=== PATIENT | male | born 2000 | race Caucasian/White ===

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

== ENCOUNTER 2022-12-05 14:34 | Emergency (ER) | payer BC, MEDICAID, SELFPAY ==
[2022-12-05 14:41] VITALS: BP 151/94; PULSE 82; RESP 16; TEMP 36.8; O2SAT 98; BMI 31.1
--- NOTE | 2022-12-05 15:02 | CTR_ITS ---
PROCEDURE INFORMATION: Exam: CT Neck With Contrast Exam date and time: 12/05/2022 3:12 PM Age: 22 years old Clinical indication: Other: Tonsil mass vs abscess TECHNIQUE: Imaging protocol: Computed tomography of the neck with contrast. Radiation optimization: All CT scans at this facility use at least one of these dose optimization techniques: automated exposure control; mA and/or kV adjustment per patient size (includes targeted exams where dose is matched to clinical indication); or iterative reconstruction. Contrast material: OMNI 350; Contrast volume: 100 ml; Contrast route: INTRAVENOUS (IV); REPORTING DATA: Count of CT and Cardiac NM exams in prior 12 months: This patient has received 0 known CTs and 0 known cardiac nuclear medicine studies in the 12 months prior to the current study. COMPARISON: No relevant prior studies available. RADIATION DOSE METRICS: Total DLP (mGy-cm): 282.96 FINDINGS: Mastoid air cells: Postsurgical changes from prior left wall up mastoidectomy. Paranasal sinuses: Small [id number]-right maxillary sinus mucous retention cysts. Pharynx: There is significant adenoidal enlargement narrowing the nasopharynx. There is enlargement of the palatine tonsils with subtle striated enhancement pattern. Tiny right palatine tonsil calcification. No hypoattenuation to suggest abscess. Larynx: Unremarkable. Epiglottis is normal. Prevertebral and retropharyngeal spaces: Unremarkable. Salivary glands: Normal. Glands are normal in size. Thyroid: Normal. No enlarged or calcified nodules. Lymph nodes: Multiple prominent cervical lymph nodes with index right jugulodigastric lymph node measuring 16 mm in the short axis on axial image 58 of series 4. Index left level IIB lymph node measures 12 mm in the short axis on axial image 45 of series 4. Trachea: Visualized trachea is unremarkable. Lungs: Few sub 6 mm nodules at the visualized right upper lung. Bones/joints: Unremarkable. No acute fracture. Vasculature: Normal variant 4 vessel left aortic arch. Soft tissues: Unremarkable. No significant soft tissue swelling. CT/CT neck w con* [id number] IMPRESSION: 1. Adenoidal and palatine tonsillar enlargement without abscess. 2. Cervical lymphadenopathy is likely reactive. Recommend clinical follow-up. 3. Few sub 6 mm nodules at the right upper lung. If the patient does not have known cancer, follow up should be based on clinical information because of the low risk of cancer in this age group. (Reference: Yoko) REFERENCES: Yoko Vincent, et al. Guidelines for Management of Incidental Pulmonary Nodules Detected on CT Images: From the Fleischner Society 2017. Radiology. 2017;284(1):228-243.
--- NOTE | 2022-12-05 15:05 | W.ED.GENADLT ---
HPI - General Adult General: Chief complaint: Airway/Esophagus Foreign Body Stated complaint: tonsils swollen Time Seen by Provider: 12/05/22 14:55 History of Present Illness: This patient is a 22 year old sent to the ED from the walk in clinic due to concern for a peritonsillar abscess. He reports pain and swelling of the right side of his throat, neck, right ear for about 4 days. He also notes that his gums are sore. He denies fever or headache. He went to the walk in clinic and was sent here. No difficulty swallowing or breathing. He feels like his sinuses are always clogged up and blows purulent bloody stuff out of his nose every few weeks. He also had a similar episode about 9 months ago and was seen at a walk in clinic in [place]. At that time he was told that he had a tonsil stone and was given mouthwash. He also notes that his gums were bleeding a lot at that time as well. He says it eventually got better. His other relevant medical history is a cyst on the left ear that was touching his brain and had to be removed. He says that he had to have emergency surgery in [place] for that - done by ENT. He can't tell me any more about that. He also has braces on his teeth and says that they are long overdue to come off. [facility] ED PFSH: Social History Smoking and tobacco status: never smoked Alcohol intake: never Substance/Drug Use: never Physical Exam Const: COMMON NORMALS: no acute distress, patient oriented x3, no limitations and alert GENERAL APPEARANCE: cooperative and comfortable HENMT: COMMON NORMALS: external ears normal and TM's normal bilaterally HEAD & SCALP: normal to inspection FACE & SINUS: normal facial exam EXTERNAL EAR: Yes external ears normal TYMPANIC MEMBRANE: TM's normal bilaterally MOUTH: Normal oral and palatal mucosa present and tongue normal OTHER: right tonsil enlarged, with an ulceration on the anterior portion of the tonsil. Eye: GENERAL EYE: appearance normal, both eyes and all related structures Neck/C-Spine: COMMON NORMALS: supple, no meningeal signs and no JVD Chest: COMMONS NORMALS: normal inspection of the chest Resp: COMMON NORMALS: normal respiratory effort, No use of accessory muscles and clear to auscultation bilaterally AUSCULTATION: clear to auscultation bilaterally Cardio: COMMON NORMALS: no JVD, regular rate, regular rhythm and No murmurs present (Cardio) RATE: regular rate RHYTHM: regular rhythm GI: COMMON NORMALS: Normal to inspection, nondistended, normoactive bowel sounds present, Soft to palpation and non-tender INSPECTION: Yes normal to inspection AUSCULTATION: Yes normoactive bowel sounds PALPATION: Yes Soft to palpation : COMMON NORMALS: Yes Testes normal and Yes scrotum normal PENIS: uncircumcised and ulceration (right side of the shaft) Back/Pelvis: COMMON NORMALS: thoracic and lumbar spine normal to inspection Extremity: COMMON NORMALS: normal to inspection Neuro: COMMON NORMALS: patient oriented x3, moves all extremities, no focal motor deficits and no sensory deficits noted SENSORIUM/ORIENTATION: Yes alert MENINGEAL SIGNS: Yes no meningeal signs Psych: COMMON NORMALS: mental status grossly normal, cooperative and normal affect Skin: COMMON NORMALS: no rashes or lesions noted and turgor normal GENERAL SKIN EXAM: no rashes or lesions noted and turgor normal Course Vital Signs: Vital signs: Vital Signs Temperature 98.2 F 12/05/22 14:41 Pulse Rate 82 12/05/22 14:41 Respiratory Rate 16 12/05/22 14:41 Blood Pressure 151/94 12/05/22 14:41 Pulse Oximetry 98 12/05/22 14:41 Oxygen Delivery Me thod Room Air 12/05/22 14:41 MDM - General Adult Medical Decision 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 I think labs and a CT are reasonable to evaluate for mass or sinus abnormality - as well as for RETAIL BANKING MANAGER. If neg - outpatient antibiotics seems appropriate. CT shows post surgical changes consistent with mastoiditis on the left. Presume this is the cyst surgery to which the patient referred. No abscess, no mass. Outpatient antibiotics and strongly recommend ENT follow up as this is a recurrent episode with in the past year. Patient's sodium came back somewhat low at 126. Cl also low. Reason for this is unclear as he is on no medications and is generally healthy. This was discussed with the patient. He was referred for follow up with a PCP and encouraged to get his labs rechecked within a week. I don't think this needs further work up in the ED at this time as he is asymptomatic. At discharge, the patient requested to be checked for STDs. He has a lesion on his penis that has been present for 2 days. It is a dry, shallow ulcer. Mildly painful. No lymphadenopathy. No discharge. He says that he pulled a tick of his lower abdomen and has a few other lesions in the groin area that he thinks are tick bites. He has had unprotected sex with some questionable women recently. He does not know of a definite exposure. We discussed empiric treatment vs testing and waiting on results. He prefers to wait. He understands the importance of treatment if he is called with a positive result. RPR and GC/chlamydia sent. Lab Data 12/05/22 15:26 12/05/22 15:[address] 12/05/22 15:02 IMPRESSION: 1. Adenoidal and palatine tonsillar enlargement without abscess. 2. Cervical lymphadenopathy is likely reactive. Recommend clinical follow-up. 3. Few sub 6 mm nodules at the right upper lung. If the patient does not have known cancer, follow up should be based on clinical information because of the low risk of cancer in this age group. (Reference: Yoko) REFERENCES: Luxhoeloisa H, et al. Guidelines for Management of Incidental Pulmonary Nodules Detected on CT Images: From the Fleischner Society 2017. Radiology. 2017;284(1):228-243. Laboratory Results WBC 7.0 10^3/uL (4.0-10.0) 12/05/22: RBC 5.37 10^6/uL (4.1-5.3) H 12/05/22 15: Hgb 16.3 g/dL (11.7-16.6) 12/05/22 15: Hct 50.2 % (42.0-52.0) 12/05/22 15: MCV 93.5 fl (80-94) 12/05/22 15: MCH 30.4 pg (28.0-34.0) 12/05/22 15: MCHC 32.5 g/dL (30.0-36.0) 12/05/22: RDW 12.3 % (12.1-15.1) 12/05/22 15:26 Plt Count 210 10^3/cmm (130-400) 12/05/22 15: MPV 10.4 fL (7.4-10.4) 12/05/22 15:26 Neut % (Auto) 67.7 % 12/05/22 15:26 Lymph % (Auto) 20.6 % 12/05/22 15:26 [place] % (Auto) 9.4 % 12/05/22 15:26 Eos % (Auto) 1.3 % 12/05/22 15:26 Baso % (Auto) 0.7 % 12/05/22 15:26 Neut # (Auto) 4.73 10^3/uL (1.8-7.7) 12/05/22 15:26 Lymph # (Auto) 1.4 10^3/uL (0.8-4.8) 12/05/22 15: [place] # (Auto) 0.7 10^3/uL (0.2-0.9) 12/05/22 15:26 Eos # (Auto) 0.1 10^3/uL (0.0-0.8) 12/05/22 15:26 Baso # (Auto) 0.1 10^3/uL (0.0-0.1) 12/05/22 15:26 Nucleated RBC % (auto) 0 % 12/05/22 15: Nucleated RBCs # 0.0 /100WBC 12/05/22 15:26 Sodium 126 mmol/L (136-145) L 12/05/22 15:26 Potassium 4.5 mmol/L (3.5-5.1) 12/05/22 15:26 Chloride 93 mmol/L (98-107) L 12/05/22 15:26 Carbon Dioxide 23 mmol/L (22-29) 12/05/22 15:26 Anion Gap 14.5 (5-19) 12/05/22 15:26 BUN 13 mg/dL (6-20) 12/05/22 15:26 Creatinine 0.9 mg/dL (0.7-1.2) 12/05/22 15:26 GFR Calculation 106.5 mL/min (90-130) 12/05/22 15:26 Glucose 81 mg/dL (65-115) 12/05/22 15:26 Calculated Osmolality 261 mOsm/kg (285-295) L 12/05/22 15:26 Calcium 8.9 mg/dL (8.5-10.5) 12/05/22 15:26 Total Bilirubin 0.7 mg/dL (0.15-1.2) 12/05/22 15:26 AST 15 U/L (0-40) 12/05/22 15:26 ALT 15 U/L (0-41) 12/05/22 15:26 Alkaline Phosphatase 90 U/L (40-130) 12/05/22 15:26 Total Protein 7.9 g/dL (6.6-8.7) 12/05/22 15:26 Albumin 4.3 g/dL (3.5-5.2) 12/05/22 15:26 Globulin 3.6 g/dL (1.3-4.6) 12/05/22 15:26 Discharge Plan Discharge Patient Disposition: Home Clinical Impression: Ulcer of tonsil, History of left mastoidectomy, Hyponatremia, Sore of penis Condition: Stable Prescriptions: New Augmentin XR 1,000-62.5 mg tablet extended release 12 hr 1 tab PO BID 7 Days Qty: 14 0RF Peroxide Sore Mouth Cleanser 1.5 % solution 10 ml mucous membrane TID Qty: 236 0RF Rx Instructions: swish and spit Discharge Orders: Discharge ED (Routine); Ordered 12/05/22 Ordered By: Ирина Rogers Referrals: Raimundo Hargrove MD [Physician] - [facility], [Staff Physician] - Patient Instructions: Opioid Safety, Pain Management Activity Restrictions/Additional Instructions: Follow up with the ENT doctor for evaluation of your tonsils, as this is likely to happen again in the future. No sexual contact until you have been given the results of the test for syphilis, chlamydia and gonorrhea - and have been treated if they are positive. Coding Level of Care Code ED Hadoop Admin for Theodora Mora
[2022-12-05] MEDS: iohexol 350 mg/mL 500 mL Btl (per mL) IV (15:18)
[2022-12-05 15:31] LABS: Basophils # 0.1 10^3/uL (0.0-0.1); Basophils % 0.7 %; Eosinophils # 0.1 10^3/uL (0.0-0.8); Eosinophils % 1.3 %; Hematocrit 50.2 % (42.0-52.0); Hemoglobin 16.3 g/dL (11.7-16.6); Lymphocytes # 1.4 10^3/uL (0.8-4.8); Lymphocytes % 20.6 %; Mean Corpuscular HGB Conc 32.5 g/dL (30.0-36.0); Mean Corpuscular Hemoglobin 30.4 pg (28.0-34.0); Mean Corpuscular Volume 93.5 fl (80-94); Mean Platelet Volume 10.4 fL (7.4-10.4); Monocytes # 0.7 10^3/uL (0.2-0.9); Monocytes % 9.4 %; Neutrophils # 4.73 10^3/uL (1.8-7.7); Neutrophils % 67.7 %; Nucleated Red Blood Cells % 0 %; Platelet Count 210 10^3/cmm (130-400); Red Blood Count 5.37 10^6/uL (4.1-5.3); Red Cell Distribution Width 12.3 % (12.1-15.1)
[2022-12-05 16:17] LABS: Alanine Aminotransferase 15 U/L (0-41); Albumin Level 4.3 g/dL (3.5-5.2); Alkaline Phosphatase 90 U/L (40-130); Anion Gap 14.5 (5-19); Aspartate Amino Transferase 15 U/L (0-40); Blood Urea Nitrogen 13 mg/dL (6-20); Calcium 8.9 mg/dL (8.5-10.5); Carbon Dioxide 23 mmol/L (22-29); Chloride 93 mmol/L (98-107); Globulin 3.6 g/dL (1.3-4.6); Glomerular Filtration Rate 106.5 mL/min (90-130); Glucose 81 mg/dL (65-115); Osmolality Calculated 261 mOsm/kg (285-295); Potassium 4.5 mmol/L (3.5-5.1); Sodium 126 mmol/L (136-145); Total Bilirubin 0.7 mg/dL (0.15-1.2); Total Protein 7.9 g/dL (6.6-8.7)
[2022-12-05] MEDS: amoxicillin-clav 875-125 mg Tablet 1 TAB PO (17:21)
[2022-12-07 14:00] LABS: RPR w(Moniotor) w/REFL Titer NON-REACTIVE (NON-REACTIVE)
== END 2022-12-05 17:29 | disposition home or self-care (01) ==
PROVIDERS: Emergency Provider Emergency Medicine
DX: J35.8 Other chronic diseases of tonsils and adenoids (principal); E87.1 Hypo-osmolality and hyponatremia; N48.89 Other specified disorders of penis
CPT/HCPCS: 36415; 70491; 80053; 85025; 86592; 87491; 87591; 99285; Q9967

== ENCOUNTER 2022-12-08 13:14 | Emergency (ER) | payer BC, MEDICAID, SELFPAY ==
[2022-12-08 13:43] VITALS: BP 150/92; PULSE 69; RESP 16; TEMP 36.7; O2SAT 99; BMI 31.1
--- NOTE | 2022-12-08 15:04 | W.ED.SKABFB ---
HPI - Skin/Abscess/Foreign Bdy General: Chief complaint: Skin/Abscess/Foreign Body Stated complaint: blisters on thighs, and genital area Time Seen by Provider: 12/08/22 14:31 Source: patient Mode of arrival: ambulatory History of Present Illness: 22-year-old male with a worsening rash she was seen a few days ago had a single cratered lesion he is checked for STDs and syphilis. He states now he is has a blistering rash that is burning and pain is on the shaft of his penis as well as adjacent areas over the mons. No dysuria urgency or frequency no hematuria MD complaint: rash Onset (ago): day(s) Location: genitals Severity: moderate Quality: burning Exacerbating factors: none Context: none Associated symptoms: Deny arthralgias, chills, cough, fever(s), itching, myalgias, nausea, rigidity, short of breath or vomiting Treatments prior to arrival: none Review of Systems Const: Denies: fever(s) or chills ENMT: Denies: throat pain, ear or mastoid pain, nasal discharge or nasal congestion Card: Denies: chest pain, edema, dyspnea on exertion or orthopnea Resp: Denies: dyspnea, productive cough or non-productive cough GI: Denies: nausea or vomiting : Denies: flank pain, dysuria, urinary frequency or urinary urgency Skin/Breast: Reports: rash and skin tenderness; Denies: pruritus PFSH ED PFSH: Social History Smoking and tobacco status: never smoked Alcohol intake: never Substance/Drug Use: never Physical Exam Const: GENERAL APPEARANCE: cooperative and comfortable ORIENTATION/CONSCIOUSNESS: Yes awake, Yes oriented to person, Yes oriented to place and Yes oriented to time HENMT: COMMON NORMALS: normocephalic, atraumatic and hearing grossly normal bilaterally HEAD & SCALP: normocephalic and atraumatic Resp: COMMON NORMALS: normal respiratory effort, No retractions, No use of accessory muscles and clear to auscultation bilaterally AUSCULTATION: clear to auscultation bilaterally Cardio: COMMON NORMALS: regular rate, regular rhythm and No murmurs present (Cardio) RATE: regular rate RHYTHM: regular rhythm GI: COMMON NORMALS: Soft to palpation and No hepatosplenomegaly present AUSCULTATION: Yes normoactive bowel sounds PALPATION: Yes Soft to palpation, No Tenderness to palpation present (GI), No Guarding due to palpation present (GI) and Yes No hepatosplenomegaly present Extremity: COMMON NORMALS: normal to inspection, capillary refill normal, no clubbing, cyanosis or edema, no calf tenderness and no pedal edema Neuro: SENSORIUM/ORIENTATION: Yes oriented to person, Yes oriented to place and Yes oriented to time Skin: OTHER: Vesicular rash to the genital region including the shaft of the penis on the right and over the mons on the left. Is not really in a dermatomal pattern. Course Vital Signs: Vital signs: Vital Signs Temperature 98.1 F 12/08/22 13:43 Pulse Rate 71 12/08/22 15:44 Respiratory Rate 16 12/08/22 13:43 Blood Pressure 144/98 12/08/22 15:44 Pulse Oximetry 99 12/08/22 15:44 Oxygen Delivery Me thod Room Air 12/08/22 13:43 MDM - Skin/Abscess/Foreign Bdy Medicial Decision Making Herpetic rash. Started on Valtrex. Discussed with patient. Viral culture was done of 2 of the lesions results pending Medical Records I reviewed the patient's medical records. Lab Data I reviewed the patient's lab results. Discharge Plan Discharge Patient Disposition: Home Clinical Impression: Herpes genitalia Condition: Stable Prescriptions: New Valtrex 1 gram tablet 1,000 mg PO BID 10 Days Qty: 20 0RF No Action Augmentin XR 1,000-62.5 mg tablet extended release 12 hr 1 tab PO BID 7 Days Qty: 14 0RF Peroxide Sore Mouth Cleanser 1.5 % solution 10 ml mucous membrane TID Qty: 236 0RF Rx Instructions: swish and spit Discharge Orders: Discharge ED (Routine); Ordered 12/08/22 Ordered By: Romeo Sharma Discharge Diet: Usual diet Discharge Activity: Increase activity as tolerated Patient Instructions: Opioid Safety, Pain Management Coding Level of Care Code ED Gliding Pilot Instructor for Theodora Mora
[2022-12-08 15:44] VITALS: BP 144/98; PULSE 71; O2SAT 99
== END 2022-12-08 15:47 | disposition home or self-care (01) ==
PROVIDERS: Emergency Provider Family Medicine
DX: A60.00 Herpesviral infection of urogenital system, unspecified (principal)
CPT/HCPCS: 87255; 99283

== ENCOUNTER 2023-02-09 00:23 | Emergency (ER) | payer BC, MEDICAID, SELFPAY ==
[2023-02-09 00:24] VITALS: BP 163/93; PULSE 75; RESP 18; TEMP 36.7; O2SAT 98; BMI 31.1
--- NOTE | 2023-02-09 00:45 | W.ED.PSYCHS ---
HPI - Psych General: Chief Complaint: Psychiatric Symptoms Stated Complaint: SI Time Seen by Provider: 02/09/23 00:36 History of Present Illness: Patient presents to the ER by EMS with complaints of depression and stress and intoxication. Patient admits he was drinking tonight and became upset and very depressed. Patient's mother was murdered in September Emotions get overwhelmed along with drinking. Patient states he has to care for his little brothers and had to go take out alone tonight to buy food for them. Patient states his dad still lives there but he cannot help out very much. Patient denied any homicidal or suicidal ideation to myself. He did state that he was down depressed and got the drinking and just made it worse Review of Systems General: Reports: 10 or more systems reviewed and unremarkable except in HPI and below PFSH ED PFSH: Social History Smoking and tobacco status: never smoked Alcohol intake: never Substance/Drug Use: never Physical Exam Const: COMMON NORMALS: no acute distress, average body habitus, patient oriented x3, no limitations, healthy appearing, alert and well nourished HENMT: COMMON NORMALS: normocephalic, atraumatic, hearing grossly normal bilaterally, external ears normal, Normal external nose present and moist oral mucous membranes HEAD & SCALP: normocephalic and atraumatic NOSE: Normal external nose present EXTERNAL EAR: Yes external ears normal Eye: COMMON NORMALS: Equal, round and reactive pupils present, EOMs intact bilaterally, conjunctivae normal and no scleral icterus CONJUNCTIVA: Yes conjunctivae normal PUPIL: Yes Equal, round and reactive pupils present Neck/C-Spine: COMMON NORMALS: full ROM, no lymphadenopathy, supple, no meningeal signs, no JVD and Thyroid normal THYROID: Thyroid normal Chest: COMMONS NORMALS: normal inspection of the chest and normal palpation of entire chest wall Resp: COMMON NORMALS: normal respiratory effort, No retractions, No use of accessory muscles and clear to auscultation bilaterally AUSCULTATION: clear to auscultation bilaterally Cardio: COMMON NORMALS: no JVD, regular rate, regular rhythm, S1 normal heart sound present, S2 normal heart sound present, No gallops present (Cardio), No clicks present (Cardio) and No murmurs present (Cardio) RATE: regular rate RHYTHM: regular rhythm HEART SOUNDS: S1 normal heart sound present and S2 normal heart sound present GI: COMMON NORMALS: Normal to inspection, nondistended, normoactive bowel sounds present, Soft to palpation, non-tender and No hepatosplenomegaly present PALPATION: Yes Soft to palpation and Yes No hepatosplenomegaly present : COMMON NORMALS: Yes no CVA tenderness BLADDER/KIDNEY EXAM: Yes no CVA tenderness Back/Pelvis: COMMON NORMALS: no CVA tenderness Neuro: COMMON NORMALS: patient oriented x3 SENSORIUM/ORIENTATION: Yes alert MENINGEAL SIGNS: Yes no meningeal signs Course Vital Signs: Vital signs: Vital Signs Temperature 98.0 F 02/09/23 00:24 Pulse Rate 75 02/09/23 00:24 Respiratory Rate 18 02/09/23 00:24 Blood Pressure 163/93 02/09/23 00:24 Pulse Oximetry 98 02/09/23 00:24 Oxygen Delivery Me thod Room Air 02/09/23 00:24 MDM - Psych Medical Decision Making Patient presented to the ER with complaints of depression and alcohol intoxication. Patient has not home family life stressors and depression and that he started drinking which made it worse. Patient denies any suicidal ideation or homicidal ideation consistently throughout his entire stay. Patient was worked up with a normal psychiatric fashion patient's blood alcohol level came back elevated at 161. Patient was daksha a second time 3 hours later and had decreased to 106. Patient still consistently said he had no suicidal or homicidal ideation and was just depressed and was drinking. I feel the patient is not a suicide risk or homicide risk. And will discharge patient to a sober willing route driver salesperson. Differential Diagnosis Likely depression; Unlikely acute psychosis, chronic schizophrenia, suicidal ideation, bipolar disorder, drug-induced psychotic disorder or acute anxiety Medical Records I reviewed the patient's medical records. Lab Data I reviewed the patient's lab results. 02/09/23 01:02 02/09/23 01:02 Laboratory Results WBC 6.52 10^3/uL (3.29-11.43) 02/09/23 01:02 RBC 5.78 10^6/uL (3.85-5.65) H 02/09/23 01:02 Hgb 17.70 g/dL (11.27-16.99) H 02/09/23 01:02 Hct 52.5 % (37-53) 02/09/23 01:02 MCV 90.8 fl (82-101) 02/09/23 01:02 MCH 30.6 pg (27-33) 02/09/23 01:02 MCHC 33.7 g/dL (30-55) 02/09/23 01:02 RDW 13.0 % (12.1-15.1) 02/09/23 01:02 Plt Count 221 10^3/cmm (157-399) 02/09/23 01:02 MPV 10.3 fL (7.4-10.4) 02/09/23 01:02 Neut % (Auto) 59.4 % 02/09/23 01:02 Lymph % (Auto) 31.9 % 02/09/23 01:02 [place] % (Auto) 7.2 % 02/09/23 01:02 Eos % (Auto) 0.6 % 02/09/23 01:02 Baso % (Auto) 0.6 % 02/09/23 01:02 Neut # (Auto) 3.87 10^3/uL (1.8-7.7) 02/09/23 01:02 Lymph # (Auto) 2.1 10^3/uL (0.8-4.8) 02/09/23 01:02 [place] # (Auto) 0.5 10^3/uL (0.2-0.9) 02/09/23 01:02 Eos # (Auto) 0.0 10^3/uL (0.0-0.8) 02/09/23 01:02 Baso # (Auto) 0.0 10^3/uL (0.0-0.1) 02/09/23 01:02 Nucleated RBC % (auto) 0 % 02/09/23 01:02 Nucleated RBCs # 0.0 /100WBC 02/09/23 01:02 Sodium 141 mmol/L (136-145) 02/09/23 01:02 Potassium 3.9 mmol/L (3.5-5.1) 02/09/23 01:02 Chloride 103 mmol/L (98-107) 02/09/23 01:02 Carbon Dioxide 25 mmol/L (22-29) 02/09/23 01:02 Anion Gap 16.9 (5-19) 02/09/23 01:02 BUN 11 mg/dL (6-20) 02/09/23 01:02 Creatinine 0.9 mg/dL (0.7-1.2) 02/09/23 01:02 GFR Calculation 106.5 mL/min (90-130) 02/09/23 01:02 Glucose 90 mg/dL (65-115) 02/09/23 01:02 Calculated Osmolality 291 mOsm/kg (285-295) 02/09/23 01:02 Calcium 9.9 mg/dL (8.5-10.5) 02/09/23 01:02 Total Bilirubin 0.6 mg/dL (0.15-1.2) 02/09/23 01:02 AST 19 U/L (0-40) 02/09/23 01:02 ALT 15 U/L (0-41) 02/09/23 01:02 Alkaline Phosphatase 92 U/L (40-130) 02/09/23 01:02 Total Protein 8.8 g/dL (6.6-8.7) H 02/09/23 01:02 Albumin 5.2 g/dL (3.5-5.2) 02/09/23 01:02 Globulin 3.6 g/dL (1.3-4.6) 02/09/23 01:02 Urine Color Colorless (Yellow) 02/09/23 00:35 Urine Appearance Clear (CLEAR) 02/09/23 00:35 Urine pH 7 (5-7) 02/09/23 00:35 Ur Specific [place] 1.010 (1.005-1.030) 02/09/23 00:35 Urine Protein Neg (Negative) 02/09/23 00:35 Urine Glucose (UA) Norm (Normal) 02/09/23 00:35 Urine Ketones Negative (Negative) 02/09/23 00:35 Urine Blood Neg (Negative) 02/09/23 00:35 Urine Nitrate Negative (Negative) 02/09/23 00:35 Urine Bilirubin Neg (Negative) 02/09/23 00:35 Urine Urobilinogen Neg mg/dL (Negative) 02/09/23 00:35 Ur Leukocyte Esterase Negative (Negative) 02/09/23 00:35 Salicylates 0.5 mg/dL (3-10) L 02/09/23 01:02 Urine Opiates Screen Negative ng/mL (Negative) 02/09/23 00:35 Acetaminophen < 5.0 ug/mL (10-30) L 02/09/23 01:02 Ur Barbiturates Screen Negative ng/mL (Negative) 02/09/23 00:35 Ur Phencyclidine Scrn Negative ng/mL (Negative) 02/09/23 00:35 Ur Amphetamines Screen Negative ng/mL (Negative) 02/09/23 00:35 U Benzodiazepines Scrn Negative ng/mL (Negative) 02/09/23 00:35 Urine Cocaine Screen Negative ng/mL (Negative) 02/09/23 00:35 U Marijuana (THC) Screen Positive ng/mL (Negative) H 02/09/23 00:35 Ethyl Alcohol 106 mg/dL (0-10) H 02/09/23 03:54 Discharge Plan Discharge Patient Disposition: Home Clinical Impression: Depression Qualifiers: Depression Type: major depressive disorder Major depression recurrence: unspecified whether recurrent Active/Remission status: remission status unspecified Qualified Code(s): F32.9 - Major depressive disorder, single episode, unspecified Alcohol intoxication Qualifiers: Complication of substance-induced condition: uncomplicated Qualified Code(s): F10.920 - Alcohol use, unspecified with intoxication, uncomplicated Condition: Stable Prescriptions: No Action Peroxide Sore Mouth Cleanser 1.5 % solution 10 ml mucous membrane TID Qty: 236 0RF Rx Instructions: swish and spit Discharge Orders: Discharge ED (Routine); Ordered 02/09/23 Ordered By: Gregory Carter Patient Instructions: Depression (ED), Alcohol Intoxication (ED) Activity Restrictions/Additional Instructions: Please sustain from using alcohol especially when you are depressed. Alcohol is a depressant and will only make things worse. Please follow-up with your family practice doctor as you may benefit from further evaluation testing and/or placement on antidepressants. Coding Level of Care Code ED Assistant Track Coach for Theodora Mora
[2023-02-09 01:01] LABS: Add Urine Microscopic? NO; Charge for UA Resulting for Rev
[2023-02-09 01:11] LABS: Bilirubin Urine Neg (Negative); Blood Urine Neg (Negative); Glucose Urine UA Norm (Normal); Ketones Urine Negative (Negative); Leukocyte Esterase Urine Negative (Negative); Nitrate Urine Negative (Negative); Protein Urine Neg (Negative); Urine Appearance Clear (CLEAR); Urine Color Colorless (Yellow); Urobilinogen Urine Neg (Negative); pH Urine 7 (5-7)
[2023-02-09 01:12] LABS: Amphetamines Screen Urine Negative (Negative); Barbiturates Screen Urine Negative (Negative); Benzodiazepines Screen Urine Negative (Negative); Cocaine Screen Urine Negative (Negative); Opiate Screen Urine Negative (Negative); PCP Screen Urine Negative (Negative); THC Screen Urine Positive (Negative)
[2023-02-09 01:16] LABS: Basophils % 0.6 %; Eosinophils % 0.6 %; Hematocrit 52.5 % (37-53); Lymphocytes # 2.1 10^3/uL (0.8-4.8); Lymphocytes % 31.9 %; Mean Corpuscular HGB Conc 33.7 g/dL (30-55); Mean Corpuscular Hemoglobin 30.6 pg (27-33); Mean Corpuscular Volume 90.8 fl (82-101); Mean Platelet Volume 10.3 fL (7.4-10.4); Monocytes # 0.5 10^3/uL (0.2-0.9); Monocytes % 7.2 %; Neutrophils # 3.87 10^3/uL (1.8-7.7); Neutrophils % 59.4 %; Nucleated Red Blood Cells % 0 %; Platelet Count 221 10^3/cmm (157-399); Red Blood Count 5.78 10^6/uL (3.85-5.65); White Blood Count 6.52 10^3/uL (3.29-11.43)
[2023-02-09 01:37] LABS: Alanine Aminotransferase 15 U/L (0-41); Albumin Level 5.2 g/dL (3.5-5.2); Alcohol Level 161 mg/dL (0-10); Alkaline Phosphatase 92 U/L (40-130); Anion Gap 16.9 (5-19); Aspartate Amino Transferase 19 U/L (0-40); Blood Urea Nitrogen 11 mg/dL (6-20); Calcium 9.9 mg/dL (8.5-10.5); Carbon Dioxide 25 mmol/L (22-29); Chloride 103 mmol/L (98-107); Globulin 3.6 g/dL (1.3-4.6); Glomerular Filtration Rate 106.5 mL/min (90-130); Glucose 90 mg/dL (65-115); Osmolality Calculated 291 mOsm/kg (285-295); Potassium 3.9 mmol/L (3.5-5.1); Salicylate 0.5 mg/dL (3-10); Sodium 141 mmol/L (136-145); Total Bilirubin 0.6 mg/dL (0.15-1.2); Total Protein 8.8 g/dL (6.6-8.7)
[2023-02-09 01:48] LABS: Acetaminophen < 5.0 ug/mL (10-30)
--- NOTE | 2023-02-09 01:56 | PC.NURSE ---
RN into room to talk to pt after pt told sitter he wants to leave. Pt states to RN, I am sorry for what I said earlier. I was just in the spot where my mom was murdered and I never drink but I drank a half pint of [employer]. I have worked 18 days in a row and had abeba off. I would never actually kill myself because I have to take care of my family. I was just too emotional in the moment when the pipe fitter soft copper came up and I said that. RN informed pt that his mental status would be reevaluated with the psychiatrist once he becomes more sober. Pt is okay with this, stating I understand. I will do whatever you guys need me to do. I know I have to be there for my siblings and I have to be safe. Pt agreed to try and sleep for a few hours. notified. Will continue to monitor with suicide precautions in place.
--- NOTE | 2023-02-09 03:53 | PC.NURSE ---
RN into room per pt request. Pt is still requesting to go home and frequently states he is not SI/HI and he would never be. Pt states, I know I was sent here to get help but I really think I just need to be home with my family. That is going to help me more than 4 white hyatt and loneliness. Pt is cooperative and willing to have ETOH redrawn. Pt reminded of seriousness of SI and his safety. Pt verbalized understanding of this and states he is serious on his denial of SI. MD notified. Waiting for ETOH level at this time and continuing to monitor with suicide precautions in place.
[2023-02-09 04:21] LABS: Alcohol Level 106 mg/dL (0-10)
--- NOTE | 2023-02-09 04:46 | PC.NURSE ---
Pt is up in his asking when he will be able to go home. pt has been eating and drinking. pt states that he has no intentions of harming himself or anyone else. pt states that he just needs to be with his family. the pt has not wavered from his previous statements denying that he would harm himself.
--- NOTE | 2023-02-09 05:03 | PC.NURSE ---
Pt informed about suicide contract and the rules regarding this. Pt verbalized understanding and stated, I will never have suicidal thoughts or actions in the future so I promise I will follow this. Pt also agreed to be more careful with alcohol consumption and showed intent about seeing a therapist. Pt signed contract. MD and RN signed contract. Pt contacted father who is driving from home in [place] to pick him up. Pt is changed out and eating a sandwich while waiting for father.
[2023-02-09 05:39] VITALS: BP 163/93; PULSE 75; RESP 18; TEMP 36.7; O2SAT 98
== END 2023-02-09 05:40 | disposition home or self-care (01) ==
PROVIDERS: Emergency Provider Emergency Medicine
DX: F32.9 Major depressive disorder, single episode, unspecified (principal); F10.920 Alcohol use, unspecified with intoxication, uncomplicated
CPT/HCPCS: 36415; 80053; 80306; 80307; 81003; 85025; 99283

== ENCOUNTER 2023-12-02 14:49 | Emergency (ER) | payer BC, SELFPAY ==
[2023-12-02 14:50] VITALS: BP 162/82; PULSE 74; RESP 16; TEMP 36.6; O2SAT 100
--- NOTE | 2023-12-02 14:59 | XRR_ITS ---
PROCEDURE INFORMATION: Exam: XR Left Toe(s) Exam date and time: 12/02/2023 3:05 PM Age: 23 years old Clinical indication: Pain; Toes; Left; Additional info: L great toe, no specific injury TECHNIQUE: Imaging protocol: Radiologic exam of the left toes. Views: Minimum 2 views. COMPARISON: No relevant prior studies available. FINDINGS: Bones/joints: Normal. Soft tissues: Normal. XR/XR toe LT min 2V 22910 IMPRESSION: No acute findings.
--- NOTE | 2023-12-02 15:00 | W.ED.EXTPRO ---
HPI - Extremity Problem General: Chief complaint: Extremity Injury, Lower Stated complaint: toe pain Time Seen by Provider: 12/02/23 14:59 Source: patient Mode of arrival: ambulatory History of Present Illness: 3-year-old male presents emergency room with sudden onset of left great toe pain at the MTP joint. He said he woke up and it was sore no trauma no sign of injury that he can recall. He has not had any fever sweats chills no lacerations abrasion or puncture wounds. No previous history of gout no previous injury of injury or surgery to that toe. MD Complaint: joint pain Onset (ago): hour(s) Pain Consistency: constant Location: left and toe (Great toe) Quality: sharp Radiation: none Relieving factors: nothing Exacerbating factors: range of motion Associated symptoms: Deny arthralgias, fever(s), myalgias, rash or short of breath Review of Systems Const: Denies: fever(s) Musc: Reports: joint pain Skin/Breast: Denies: rash PFSH ED PFSH: Social History Smoking and tobacco/nicotine status: never used tobacco/nicotine Alcohol intake: never Substance/Drug Use: never Physical Exam Narrative: EXAM NARRATIVE: Right great great toe no inflammation or swelling no induration no joint effusion no deformity no abrasions lacerations or puncture soto. There are some pain over the dorsum of the MTP joint with extension of the toe with compression of the MTT joint and manipulation does not otherwise cause pain. Course Vital Signs: Vital signs: Vital Signs Temperature 97.8 F 12/02/23 14:50 Pulse Rate 74 12/02/23 14:50 Respiratory Rate 16 12/02/23 14:50 Blood Pressure 162/82 12/02/23 14:50 Pulse Oximetry 97 12/02/23 15:05 Oxygen Delivery Me thod Room Air 12/02/23 15:05 MDM - Extremity (Nontraumatic) Medical Decision Making X-ray is negative. No trauma or evidence of injury. Started on anti-inflammatory ice were stiff bottom shoe and follow-up with primary care doctor as needed. Medical Records I reviewed the patient's medical records. XR interpretation done by ED provider, pending radiology final review Discharge Plan Discharge Patient Disposition: Home Clinical Impression: Great toe pain Condition: Stable Prescriptions: New diclofenac sodium 75 mg tablet,delayed release (DR/EC) 75 mg PO Q12H PRN (Reason: pain) Qty: 20 0RF No Action famotidine [Acid [employer] (famotidine)] 20 mg tablet 20 mg PO BID 42 Days Qty: 84 0RF ondansetron 4 mg tablet,disintegrating 4 mg PO Q6H PRN (Reason: nausea and vomiting) Qty: 12 0RF Rx Instructions: 340b please Discharge Orders: Discharge ED (Routine); Ordered 12/02/23 Ordered By: Romeo Sharma Discharge Diet: Usual diet Discharge Activity: Increase activity as tolerated Patient Instructions: Opioid Safety, Pain Management Activity Restrictions/Additional Instructions: Thank you for choosing [facility] for your healthcare needs today. It is very important that you follow up as instructed or that you return to the Emergency Department should you have concerns or if your condition changes or worsens in any way. You are seen in the emergency room for great toe pain with no history of trauma. Your exam was unremarkable x-ray did not show any acute fracture. Ice the toe is needed you can use anti-inflammatories you are given a prescription for diclofenac. If not improving follow-up with your primary care doctor to reevaluate Coding Level of Care Code ED Communications Attendant for Theodora Mora
[2023-12-02 15:05] VITALS: O2SAT 97
== END 2023-12-02 15:40 | disposition home or self-care (01) ==
PROVIDERS: Emergency Provider Family Medicine
DX: M79.675 Pain in left toe(s) (principal)
CPT/HCPCS: 73660; 99283